=== PATIENT | female | born 1955 | race Caucasian/White ===

== ENCOUNTER 2023-10-02 07:07 | Outpatient (RCR) | payer MEDICARE, OTHER, SELFPAY | END 2023-10-02 23:59 | disposition home or self-care (01) | LOC: RPT 07:07 | PROVIDERS: ATTENDING PHYSICIAN Physician Assistant Medical; FAMILY PHYSICIAN Family Medicine | DX: M17.11 Unilateral primary osteoarthritis, right knee (principal); Z96.652 Presence of left artificial knee joint; Z73.6 Limitation of activities due to disability; M25.562 Pain in left knee; M25.561 Pain in right knee | CPT/HCPCS: 97110; 97162; 97530 ==

== ENCOUNTER 2023-10-11 06:49 | Outpatient (RCR) | payer MEDICARE, OTHER, SELFPAY | END 2023-10-18 08:35 | disposition home or self-care (01) | LOC: RPT 06:49 | PROVIDERS: ATTENDING PHYSICIAN Physician Assistant Medical; FAMILY PHYSICIAN Family Medicine | DX: M17.11 Unilateral primary osteoarthritis, right knee (principal); M17.12 Unilateral primary osteoarthritis, left knee; Z73.6 Limitation of activities due to disability | CPT/HCPCS: 97110; 97112 ==

== ENCOUNTER → 2024-04-28 07:43 | Outpatient (REF) | payer MEDICARE, OTHER, SELFPAY | LOC: WDC 07:43 | PROVIDERS: ATTENDING PHYSICIAN Internal Medicine Hematology & Oncology | DX: Z12.31 Encounter for screening mammogram for malignant neoplasm of breast (principal); Z85.3 Personal history of malignant neoplasm of breast; C50.312 Malignant neoplasm of lower-inner quadrant of left female breast; R92.2 Inconclusive mammogram | CPT/HCPCS: 77063; 77067 ==

== ENCOUNTER → 2024-06-10 08:08 | Outpatient (REF) | payer MEDICARE, OTHER, SELFPAY ==
[2024-06-10 09:05] LABS: % Basophils 1.2 % (0-2); % Eosinophils 1.4 % (0-6); % Immature Granulocytes 0.2 % (0-0.5); % Lymphocytes 37.4 % (20.5-51.1); % Monocytes 10.1 % (1.7-9.3); % Neutrophils 49.7 % (42.2-75.2); Absolute Basophils 0.1 10^3/uL (0-0.2); Absolute Eosinophils 0.1 10^3/uL (0-0.7); Absolute Lymphocytes 1.6 10^3/uL (1.2-3.4); Absolute Monocytes 0.4 10^3/uL (0.1-0.6); Absolute Neutrophils 2.1 10^3/uL (1.4-6.5); Hematocrit 39.2 % (37.0-47.0); Mean Corp Hgb Conc. 33.2 g/dL (33.0-37.0); Mean Corpuscular Hgb 30.7 pg (27.0-31.0); Mean Corpuscular Volume 92.7 fL (81.0-99.0); Mean Platelet Volume 9.9 fL (7.4-10.4); Nucleated Red Blood Cells % 0 %; Platelet Count 247 10^3/uL (130-400); Red Blood Cell Count 4.23 10^6/uL (4.20-5.40); Red Cell Dist. Width 12.8 % (11.5-14.5); White Blood Cell Count 4.2 10^3/uL (4.8-10.8)
[2024-06-10 09:45] LABS: Glycohemoglobin (HgbA1c) 5.4 % (4.0-5.6)
[2024-06-10 10:13] LABS: ALT (SGPT) 17 U/L (0-35); AST (SGOT) 25 U/L (14-36); Albumin 4.3 g/dl (3.5-5.0); Alkaline Phosphatase 92 U/L (38-126); Blood Urea Nitrogen 16 mg/dl (7-17); Calcium 9.6 mg/dl (8.4-10.2); Carbon Dioxide 32 mmol/L (22-30); Chloride 103 mmol/L (98-107); Glucose 92 mg/dl (70-99); HDL Cholesterol 65 mg/dl; LDL Cholesterol, Calculated 139 mg/dl; Potassium 4.8 mmol/L (3.5-5.1); Sodium 142 mmol/L (135-145); Total Bilirubin 0.7 mg/dl (0.2-1.3); Total Cholesterol 215 mg/dl (50-199); Total Protein 6.8 g/dl (6.3-8.2); Triglyceride 58 mg/dl (10-149); Very Low Density Lipoprotein 11 mg/dl (0-30); eGFR > 60.00
[2024-06-10 10:20] LABS: Vitamin D, 25-OH*** 32.2 ng/mL (30-80)
== END ==
LOC: REG 08:08
PROVIDERS: ATTENDING PHYSICIAN Family Medicine
DX: E78.2 Mixed hyperlipidemia (principal); I10 Essential (primary) hypertension; R73.09 Other abnormal glucose; Z79.899 Other long term (current) drug therapy
CPT/HCPCS: 36415; 80053; 80061; 82306; 83036; 84443; 85025

== ENCOUNTER 2024-06-14 16:15 | Inpatient (IN) | payer MEDICARE, OTHER, SELFPAY ==
[2024-06-14 09:13] VITALS: BP 136/84
[2024-06-14 09:31] LABS: % Basophils 0.5 % (0-2); % Eosinophils 0.2 % (0-6); % Immature Granulocytes 0.6 % (0-0.5); % Lymphocytes 12.6 % (20.5-51.1); % Monocytes 6.7 % (1.7-9.3); % Neutrophils 79.4 % (42.2-75.2); Absolute Immature Granulocytes 0.1 10^3/uL (0-0.05); Absolute Lymphocytes 1.1 10^3/uL (1.2-3.4); Absolute Monocytes 0.6 10^3/uL (0.1-0.6); Hematocrit 40.5 % (37.0-47.0); Hemoglobin 13.9 g/dL (12.0-16.0); Mean Corp Hgb Conc. 34.3 g/dL (33.0-37.0); Mean Corpuscular Volume 90.4 fL (81.0-99.0); Mean Platelet Volume 9.5 fL (7.4-10.4); Nucleated Red Blood Cells % 0 %; Platelet Count 251 10^3/uL (130-400); Red Blood Cell Count 4.48 10^6/uL (4.20-5.40); Red Cell Dist. Width 12.6 % (11.5-14.5); White Blood Cell Count 8.8 10^3/uL (4.8-10.8)
[2024-06-14 09:44] LABS: APTT 29.7 Sec (23.4-35.0); INR 1.01; PT 13.1 Sec (11.4-14.6)
[2024-06-14 09:48] LABS: ALT (SGPT) 17 U/L (0-35); AST (SGOT) 25 U/L (14-36); Albumin 4.6 g/dl (3.5-5.0); Alkaline Phosphatase 114 U/L (38-126); Blood Urea Nitrogen 23 mg/dl (7-17); Carbon Dioxide 29 mmol/L (22-30); Chloride 103 mmol/L (98-107); Glucose 122 mg/dl (70-99); Lipase 40 U/L (23-300); Potassium 4.1 mmol/L (3.5-5.1); Sodium 141 mmol/L (135-145); Total Bilirubin 0.8 mg/dl (0.2-1.3); Total Protein 7.2 g/dl (6.3-8.2); eGFR > 60.00
--- NOTE | 2024-06-14 10:35 | ED.GENMED ---
History of Present Illness
General
Chief Complaint: Abdominal Pain
Source: patient
Exam Limitations: none
Time Seen by Provider: 06/14/24 10:27
Nursing documentation reviewed up to this point in time: agreed with
History of Present Illness
History of Present Illness:
Patient is a 68-year-old female who presents to the ER for evaluation of abdominal pain/blood in her stool. Patient reports she started with crampy gas-like abdominal pain yesterday and had several episodes of stool but then late last night had an
episode of what she describes as a clot of burgundy type blood and then this morning had a second episode. She also noticed that she had bright red blood when she wiped with toilet paper. She does have a history of diverticulosis but has never had
diverticulitis. This was found on colonoscopy. She denies any fever chills.
She is not on blood thinners.
Past History
Past History
ED Past Medical History: HTN
Review of Systems
Review of Systems
Allergies reviewed?: Yes
All Other Systems: ROS reviewed and negative except as documented in HPI and ROS
Constitutional: Reports no symptoms; Denies fever, fatigue or chills
Respiratory: Reports no symptoms
Cardiac: Reports no symptoms
ABD/GI: Reports abdominal pain and other (blood per rectum ); Denies nausea or vomiting
: Reports no symptoms
Musculoskeletal: Reports no symptoms
Skin: Reports no symptoms
Neurological: Reports no symptoms
Psychiatric: Reports no symptoms
Phy Exam
General Physical Exam
General Presentation: no apparent distress
General age: appears stated age
General Skin: warm and dry
General Habitus: normal
General Mental: alert
General Hydration: dry mucous membranes
Cardiovascular Exam
Cardiovascular Exam: regular rate/rhythm
Pulmonary Exam
Pulmonary Exam: lungs clear and no respiratory distress
Gastrointestinal Exam
Gastrointestinal Exam: non tender, soft and other (Rectal exam :bright red blood no active bleeding no stool )
Neurological Exam
Neurological Exam: alert
Musculoskeletal Exam
Musculoskeletal Exam: full ROM
Skin Exam
Skin Exam: normal color and warm/dry
Psychiatric Exam
Psychiatric Exam: normal mood/affect
Course
Orders/Labs/Results
Orders:
Orders
06/14/24 Breakfast
Clear Liquid
At Your Request: Full Participation
Clear Liquids: No red liquids
06/14/24 09:25
Type+Screen Urgent
Complete Blood Count/With Diff Urgent
Comprehensive Metabolic Panel Urgent
Lipase Urgent
PTT Urgent
Prothrombin Time Urgent
06/14/24 11:49
0.9% Sodium Chloride 1000 ml [Nss] 1,000 ml IV BOLUS
06/14/24 11:50
CT Abd/pel W Iv And Oral Contr Urgent
Comment:
Reason For Exam: abd pain/blood per rectum
Iohexol [Omnipaque] See Protocol PO NOW STA
06/14/24 15:31
MetroNIDAZOLE 500 MG/100 ML [Flagyl 500 mg] 100 ml IV NOW
06/14/24 16:00
Admit/Transfer Patient As Directed
Co-Sign Provider:
Level of Care: Inpatient admission
Assign to:: Medical/Surgical
Physician / Group: [facility]
Diagnosis: Colitis
Reason for Hospitalization: IVFs, IV abx
Expected length of stay greater than two midnights?: Yes
ELOS- Estimated Length of Stay in days: 3
I certify the patient meets the requirements for IP care: Yes
PRN Pain Medication Management As Directed
May give lesser potent ordered pain med per pt: Yes
preference::
Protocol:: Medication orders for pain may be administered in a
manner that supports deferring to patient preference
when the pt is:
- Requesting an ordered lesser potent pain medication.
Least to most potent pain medications are defined
as: acetaminophen < NSAID < tramadol < opioids
(morphine, oxycodone, hydromorphone).
- Requesting a lesser dose of the same medication IF
ORDERED.
- Requesting a less intrusive route of administration
if both routes are prescribed by the provider (PO <
IV).
06/14/24 16:02
Code Status As Directed
Resuscitation Status: Full Code
06/14/24 16:31
STOOL [C difficile Antigen & Toxins] Urgent
SHI Source: Feces/Stool
Specimen Description:
Date Specimen was Collected: 06/14/24
Time Specimen was Collected: 16:30
Stool Culture Urgent
SHI Source: Feces/Stool
Specimen Description:
Date Specimen was Collected: 06/14/24
Time Specimen was Collected: 16:30
06/14/24 19:46
0.9% Sodium Chloride 1000 ml [Nss] 1,000 ml IV 60 mls/hr
Acetaminophen [Tylenol] 650 mg PO Q4HPRN PRN
Ondansetron Injectable [Zofran] 4 mg IV Q6HPRN PRN
06/14/24 19:46
GASTROINTESTINAL CONSULT Routine
Consulting Provider: Urban Boyer
Was physician already notified: Yes
Activity As Directed
Activity Level: Out of Bed-Early Mobility
I&O [Intake/ Output] As Directed
Frequency: q12h
Pneumatic Compression Sleeves As Directed
Type: Knee high
Vital Signs As Directed
Frequency: Per unit guidelines
Weight As Directed
Frequency: Daily
DX Deep Vein Thrombosis Video Routine
06/14/24 22:00
Lisinopril [Zestril] 20 mg PO QPM
06/15/24 00:00
MetroNIDAZOLE 500 MG/100 ML [Flagyl 500 mg] 100 ml IV Q8
06/15/24 04:49
Basic Metabolic Panel IN AM
Complete Blood Count/No Diff IN AM
06/15/24 06:00
LevoFLOXacin 500 MG/100 ML [Levaquin] 500 mg in 100 ml IV Q24H
Abnormal Lab Results
06/14/24
09:25
Abs Immat Gran (auto) 0.1 H 10^3/uL
(0-0.05)
Absolute Neuts (auto) 7.0 H 10^3/uL
(1.4-6.5)
Absolute Lymphs (auto) 1.1 L 10^3/uL
(1.2-3.4)
Immature Gran % 0.6 H %
(0-0.5)
Neutrophils % 79.4 H %
(42.2-75.2)
Lymphocytes % 12.6 L %
(20.5-51.1)
BUN 23 H mg/dl
(7-17)
Glucose 122 H mg/dl
(70-99)
06/14/24 09:25
06/14/24 09:25
Vital Signs
Initial and Last Documented VS:
Initial Vital Signs
Temp Pulse Resp BP Pulse Ox
97.5 F 115 16 136/84 99
06/14/24 09:13 06/14/24 09:13 06/14/24 09:13 06/14/24 09:13 06/14/24 09:13
Last Documented Vital Signs
Temp Pulse Resp BP Pulse Ox
97.7 F 78 16 131/67 97
06/15/24 06:59 06/15/24 06:59 06/15/24 06:59 06/15/24 06:59 06/15/24 06:59
MDM/Problems Addressed
Differential Diagnosis Includes:
not limited to: colitis, diverticulitis less likely mesenteric ischemia
MDM/Problems Addressed:
Patient is a 60-year-old female who presented to the ER complaining of abdominal cramping that started last night along with blood per rectum. Stool was initially brown however she felt the urge to move her bowels and was producing blood. Patient
has had several episodes here but not continuous bleeding. Her hemoglobin is stable she denies any fevers and is afebrile however CAT scan does show involvement contiguously from the distal transverse colon through the descending colon and superior
sigmoid. Results reviewed with ED physician with significant involvement of colon will admit for IV antibiotics. Patient did give a specimen.
*Radiology
Radiology exam reviewed: radiology read reviewed
*Pulse Oximetry
Patient hypoxic: no
*Critical Care Note
Total Time (30-74mins, 75-104mins- exclusive of procedures): Not Applicable
ED Attending Note
-
Portions of this chart may have been created with voice recognition software.� Occasional wrong word or��sound alike� substitutions may have occurred due to the inherent limitations of voice recognition software.
Discharge Plan
Departure
Patient Disposition: Admit
Date of Disposition: 06/14/24
Time of Disposition: 15:34
Admit to: Med/Surg
Admit to doctor: hospitalist
Presentation/result/management discussed w/ accepting MD/DO: Hospitalist
Patient with high blood pressure during this ER visit?: Yes
Condition: Fair
Covid-19: Not Applicable
Discharge Problem:
Colitis
Interventions
Interventions:
*Risk Screen - Suicide Last Done: 06/14/24 09:13
*General Assessment Last Done: 06/14/24 09:13
*Neglect/Abuse Screening Last Done: 06/14/24 13:17
ED- Fall Risk Assessment Last Done: 06/14/24 13:17
*ED COVID-19 Vaccine History Last Done: 06/14/24 09:13
IZ-Lqqlps-Lyginwnhfq Assessment Last Done: 06/14/24 13:17
[2024-06-14 11:48] VITALS: BMI 22.2
[2024-06-14] MEDS: NSS 1000 IV ×2 (11:57→21:05)
[2024-06-14] MEDS: OMNIPAQUE 50 ML PO (11:57)
--- NOTE | 2024-06-14 16:05 | HPS.HSE ---
Addendum entered and electronically signed by Popeye Adan MD 06/14/24 16:19:
I saw and examined the patient.
The MONOGRAM MAKER or PA's note was reviewed and I agree with the note.
Comment:
68F pw colicky lower abdominal pain followed by passage of formed stool then followed by blood clot. This AM , loose BM mixed with flacks of blood. No typical for hematochezia.
CT suggested infectiosus colitis. Afebrile. Nl WCC. Hgb is 13.8 and stable.
No HX IBD. No recent travel. No recent ABx. HD stable.
PDX: infectious colitis
Stool Cx. Stool for C Diff.
Clear diet with IVF
Trend Hgb.
Avoid PPI due to C diff risk
Empiric IV LVQ and Flagyl.
IP MS.
GI Consult.
Original Note:
Family Physician
-
Family Physician: Lindsey Rowley
Chief Complaint
-
Abdominal Pain and Diarrhea
History of Present Illness
Patient is a 68 y/o female past medical history of hypertension and breast cancer who presents with abdominal pain and diarrhea. Patient reports yesterday evening she developed cramping abdominal pain. She reports she moved her bowel several which
all seemed formed, and initially felt much better. Prior to going to bed last night she notes she passed what sounds like a blood clot. This morning she had several episodes of controlled diarrhea where she noted flecks of blood. While in the
emergency department she has had several more episodes of diarrhea after drinking contrast for a CT scan. She denies fevers, sweats or chills. She denies recent travel, antibiotics, or questionable food intake.
Medical History
Past Medical History
Past Medical History: Reports Other
Additional Past Medical History:
Essential Hypertension
Breast Cancer s/p Left Lumpectomy and Radiation
Past Surgical History: Reports Other
Additional Past Surgical History:
Left Breast Lumpectomy
Left Knee Replacement
Social History
Tobacco: Non-smoker
Alcohol: Occasional (Patient reports very rare)
Family History
Family History: Not pertinent
Allergies / Home Medications
Allergies reflects when Allergies were last updated in [facility].
Home Medications with original date entered in [facility]
Allergy/Medication List:
Allergies
Allergy/AdvReac Type Severity Reaction Status Date / Time
No Known Allergies Allergy Verified 06/14/24 09:16
Home Medications
calcium carbonate 500 mg PO DAILY 01/08/12
lisinopril 10 mg tablet 20 mg PO QPM 10/07/18
cholecalciferol (vitamin D3) 25 mcg (1,000 unit) capsule (Vitamin D3) 1 cap PO DAILY 04/16/19
acetaminophen 325 mg tablet (Tylenol) 650 mg PO Q4HPRN PRN mild pain 06/14/24
Review of Systems
-
A 12 point ROS was completed and negative except as noted: Yes
Constitutional: Denies Fever or Chills
Respiratory: Denies Cough or Trouble Breathing
Cardiac: Denies Chest Pain or Palpitations
Abdomen/GI: Reports See HPI
Physical Exam
Vital Signs
Vital Signs
Temp Pulse Resp BP Pulse Ox
97.5 F 90 18 136/84 96
06/14/24 09:13 06/14/24 11:49 06/14/24 11:49 06/14/24 09:13 06/14/24 11:49
Physical Exam
General: Comfortable and Conversant
HEENT: Anicteric and Moist mucous membranes
Respiratory: Clear and Non Labored Respirations
Cardiac: S1/S2 and Regular Rhythm; No Tachycardia
GI: Soft and Non Tender
Rectal: Deferred by Provider
Musculoskeletal: No Clubbing, No Cyanosis and No Edema
Skin: Warm and Dry
Neuro: Awake, Alert, Oriented and Nonfocal/grossly intact
Psych: Calm
Laboratory Results
-
06/14/24:
06/14/24:
Laboratory Results
PT 13.1 Sec (11.4-14.6) 06/14/24:
INR 1.01 06/14/24
APTT 29.7 Sec (23.4-35.0) 06/14/24
Total Bilirubin 0.8 mg/dl (0.2-1.3) 06/14/24
AST 25 U/L (14-36) 06/14/24
ALT 17 U/L (0-35) 06/14/24
Alkaline Phosphatase 114 U/L (38-126) 06/14/24
Lipase 40 U/L (23-300) 06/14/24:
Abd/Pelvis CT Scan:
CT findings compatible with colitis, with involvement contiguously from the distal transverse colon through the descending colon and the superior sigmoid colon. This is most likely infectious colitis.
Data Reviewed
-
CT Scan: Report Reviewed by me
Lab Data: Labs Reviewed by me
Impression/Plan
-
Acute Colitis, likely infectious in nature
-Consult GI
-Continue Levaquin and Flagyl
-Allow clear liquids
-Check stool studies
Essential Hypertension
-Continue lisinopril with hold parameters
DVT proph: SCDs
Code Status: Full Code
[2024-06-14] MEDS: FLAGYL 500 MG 100 IV ×2 (16:21→23:42)
[2024-06-14] MEDS: CIPRO 400 MG 200 IV (17:47)
[2024-06-14] MEDS: ZESTRIL 20 MG PO (23:42)
[2024-06-15] MEDS: LEVAQUIN 100 IV (05:00)
[2024-06-15 05:11] LABS: Hematocrit 32.6 % (37.0-47.0); Hemoglobin 11.3 g/dL (12.0-16.0); Mean Corp Hgb Conc. 34.7 g/dL (33.0-37.0); Mean Corpuscular Hgb 31.6 pg (27.0-31.0); Mean Corpuscular Volume 91.1 fL (81.0-99.0); Mean Platelet Volume 9.6 fL (7.4-10.4); Platelet Count 194 10^3/uL (130-400); Red Blood Cell Count 3.58 10^6/uL (4.20-5.40); Red Cell Dist. Width 12.9 % (11.5-14.5); White Blood Cell Count 8.1 10^3/uL (4.8-10.8)
[2024-06-15 05:26] LABS: Blood Urea Nitrogen 12 mg/dl (7-17); Calcium 8.7 mg/dl (8.4-10.2); Carbon Dioxide 24 mmol/L (22-30); Chloride 108 mmol/L (98-107); Estimated Creatinine Clearance 71 ml/min; Glucose 90 mg/dl (70-99); Potassium 4.2 mmol/L (3.5-5.1); Sodium 142 mmol/L (135-145); eGFR > 60.00
[2024-06-15 06:00] VITALS: BMI 22.3
[2024-06-15 06:59] VITALS: BP 131/67
[2024-06-15] MEDS: FLAGYL 500 MG 100 IV ×3 (07:56→23:15)
--- NOTE | 2024-06-15 08:24 | W.PN.HOSP.TC ---
Today's Communication/Plan
-
See plan
Assessment / Plan
Assessment / Plan
Impression:
Transverse�descending colitis.
Hematochezia.
Other conditions:
Benign hypertension.
Plan:
Presentation with colicky abdominal pain and self-limited episode of hematochezia along with loose stools.
Left-sided most likely infectious colitis
CT scan confirms colitis involving continuously from distal transverse colon through the descending colon and the superior sigmoid colon.
Afebrile nontoxic-appearing.
Abdomen with very mild left lower quadrant tenderness
Normal white count
Reports colonoscopy about 2 years ago.
Empiric antibiotics Levaquin/Flagyl pending stool cultures.
Clear liquid diet
Okay to stop IV fluids.
GI consultation.
Anticipated Discharge: 24 - 48 hours
Subjective/Interval History
-
Date of Service: June 15, 2024
Objective Data
-
Labs:
Laboratory Results
06/15/24
04:49
WBC 8.1
Hgb 11.3 L
Hct 32.6 L
Plt Count 194 D
Sodium 142
Potassium 4.2
Chloride 108 H
Carbon Dioxide 24
BUN 12
Creatinine 0.5 L
Glucose 90
Calcium 8.7
Vital Signs:
Vital Signs
Temp Pulse Resp BP Pulse Ox
97.7 F 78 16 131/67 97
06/15/24 06:59 06/15/24 06:59 06/15/24 06:59 06/15/24 06:59 06/15/24 06:59
I&O
06/14/24 06/15/24 06/16/24
06:59 06:59 06:59
Intake Total 940 / 940
Balance 940 / 940
Physical Exam
-
General: Well Developed and No Apparent Distress
HEENT: Normocephalic, Atraumatic and Moist Mucous Membranes
Respiratory: Clear to Auscultation
Cardiac: Regular Rhythm and S1/S2; Negative Murmur, Rub or Gallop
GI: Soft, Nontender, Nondistended and Normal Bowel Sounds; Negative Organomegaly
Rectal: Deferred by Provider
Musculoskeletal: No Clubbing, No Cyanosis and No Edema
Skin: Negative Rash
Neuro: Nonfocal/Grossly Intact
--- NOTE | 2024-06-15 08:34 | CON.GI ---
Addendum entered and electronically signed by Urban Boyer MD 06/15/24 13:39:
I saw and examined the patient.
The PA's note was reviewed and I agree with the note.
Comment:
68 year old female with h/o HTN, arthritis, breast CA s/p lumpectomy and XRT in 2017 who p/w abdominal pain/cramping followed by rectal bleeding.
Impression / Rec:
1. Abdo pain/cramping and rectal bleeding - likely ischemic colitis. Pt had lower abdominal cramping and sharp pain 2 days ago, which was followed by red/maroon stool the following day. Denies diarrhea, fever, or sick contacts. Denies h/o
migraine or recent triptan use. CT here showed colitis from the distal transverse colon through the descending colon and superior sigmoid colon which is the classic watershed area. Last colonoscopy was done in March 2021, unremarkable. C.
difficile is negative. Other stool culture is pending. Will plan for flx sig today. Agree with empirical abx for now.
Original Note:
Consultation
-
Date/Time Consultation Requested: 06/14/24 @ 19:46
Date/Time Consultation Performed: 06/15/24 @ 08:45
Requesting Provider: Renata Bo PA-C
Performing Provider: [facility];Dr. Urban Boyer
Reason for Consultation: colitis
Medical History
Chief Complaint / HPI
Chief Complaint: abdominal pain, rectal bleeding
History of Present Illness:
The pt is a 68 yo female with a PMH significant for HTN, arthritis, breast cancer status postlumpectomy and radiation in 2016, who presented to the hospital with complaints of abdominal pain and rectal bleeding. We are being asked to evaluate for
colitis. The patient reports that on Saturday she was at a picnic for her grandsons birthday. She notes that she was eating various foods including potato salad and cake, although reports it had not been sitting out long prior to eating. She
notes that within a few hours she started to get the urge to have a bowel movement, and had to sit in the bathroom for half hour. She was having lower abdominal cramping with sharp pains. She within 10 minutes was finally able to have a bowel
movement although she reports that it was formed and brown-colored. She notes that she did get quite sweaty and felt weak with passing stool. She denies any syncope. She did have some lightheadedness although no significant dizziness or shortness
of breath. She notes that she had to go back to the bathroom again shortly after that and again thought she was going to have diarrhea but had another formed stool and finally started to feel better. She notes that night she went home and took a
shower and after getting out of the shower she had the urge to move her bowels again, and at this time noticed a very dark red/burgundy color in the toilet bowl. She reports upon wiping the color was red. She decided to go to bed and upon
awakening the next day on Saturday she had several similar episodes of very dark-colored stool/blood in the toilet bowl x 2 episodes. She called her primary care physician on-call, who advised her to go to the emergency room. She notes that she did
have a very foul odor to her stool. She notes she was transiently nauseated but denies any vomiting. She denies any fevers or chills. She notes that she had been losing some weight recently, but no significant weight loss unintentionally. She
reports having similar episodes to this in the past over the last 4 years but no blood. She reports chronic constipation and does take Benefiber 1 to 2 teaspoons most days which keeps her fairly regular. She notes that she does not drink enough
water and sometimes will get more constipated due to this. She otherwise denies any other upper GI complaints. She denies any prior history of colitis. She denies any use of blood thinners. She will take meloxicam a few times a month as needed
for arthritis pains. She denies any family history of colon cancer or other GI cancers or disorders. Her last colonoscopy was in 2020 with no polyps (other findings as noted below), but with fair prep she was advised to repeat in 5 years. Upon
evaluation in the ER, CT scan showing findings consistent with colitis, likely infectious with contiguous wall thickening from the distal transverse colon through the distal descending colon extending into the sigmoid colon, greatest involving the
splenic flexure. Other findings as noted below. Routine labs showed WBC 8.8, hgb 13.9 (down to 11.3), Na 141, K 4.1, BUN 23, Cr 0.6=, AST 25, ALT 17, alk phos 114, TB 0.8, lipase 40. She was started on antibiotics with Levaquin and Flagyl and
admitted for further evaluation by GI with stool studies pending.
Past Medical History
Past Medical History: Cancer (left breast CA s/p lumpectomy and XRT 2016), HTN and Other (arthritis)
Past Surgical History: Gynecological (total hysterectomy), Orthopedic (knee replacement) and Other (left breast lumpectomy)
Social History
Tobacco: Non-Smoker
Alcohol: Occasional
Drug: None
Personal:
Living: With Family
Family History
Family History: Reviewed & Not Pertinent
Allergies / Home Medications
Allergy/AdvReac Type Severity Reaction Status Date / Time
No Known Allergies Allergy Verified 06/14/24 09:16
�Medication �Instructions �Recorded
calcium carbonate 500 mg PO DAILY 01/08/12
lisinopril 10 mg tablet 20 mg PO QPM 10/07/18
cholecalciferol (vitamin D3) 25 1 cap PO DAILY 04/16/19
mcg (1,000 unit) capsule (Vitamin
D3)
acetaminophen 325 mg tablet 650 mg PO Q4HPRN PRN mild pain 06/14/24
(Tylenol)
Review of Systems
-
History Source: Patient
Constitutional: Reports No Symptoms
EENT: Reports No Symptoms
Respiratory: Reports No Symptoms
Cardiac: Reports No Symptoms
Abdomen/GI: Reports Abdominal Pain, Nausea, Diarrhea, Constipated and Bloody Stools
: Reports No Symptoms
Musculoskeletal: Reports No Symptoms
Skin: Reports No Symptoms
Neurological: Reports Other (lightheadedness)
Endocrine: Reports No Symptoms
Hematologic/Lymphatic: Reports No Symptoms
Vital Signs
Temp Pulse Resp BP Pulse Ox
97.7 F 78 16 131/67 97
06/15/24 06:59 06/15/24 06:59 06/15/24 06:59 06/15/24 06:59 06/15/24 06:59
Physical Exam
Exam
General: Well Developed, Well Nourished, No Apparent Distress and Comfortable
HEENT: Normocephalic, Anicteric and Atraumatic
Respiratory: Clear
Cardiac: S1/S2 and Regular Rhythm
Breast: Deferred by me
GI: Soft, Non Distended, Normal Bowel Sounds and Tender (+TTP LLQ)
Rectal: Deferred by Provider
Musculoskeletal: No Edema
Skin: Warm and Dry
Neuro: Awake, Alert and Oriented
Psych: Calm
Results
WBC 8.1 10^3/uL (4.8-10.8) 06/15/24 04:49
Hgb 11.3 g/dL (12.0-16.0) L 06/15/24 04:49
Hct 32.6 % (37.0-47.0) L 06/15/24 04:49
MCV 91.1 fL (81.0-99.0) 06/15/24 04:49
Plt Count 194 10^3/uL (130-400) D 06/15/24 04:49
Absolute Neuts (auto) 7.0 10^3/uL (1.4-6.5) H 06/14/24 09:25
PT 13.1 Sec (11.4-14.6) 06/14/24 09:25
INR 1.01 06/14/24 09:25
APTT 29.7 Sec (23.4-35.0) 06/14/24 09:25
Sodium 142 mmol/L (135-145) 06/15/24 04:49
Potassium 4.2 mmol/L (3.5-5.1) 06/15/24 04:49
Chloride 108 mmol/L (98-107) H 06/15/24 04:49
Carbon Dioxide 24 mmol/L (22-30) 06/15/24 04:49
BUN 12 mg/dl (7-17) 06/15/24 04:49
Creatinine 0.5 mg/dL (0.6-1.0) L 06/15/24 04:49
Calcium 8.7 mg/dl (8.4-10.2) 06/15/24 04:49
Total Bilirubin 0.8 mg/dl (0.2-1.3) 06/14/24 09:25
AST 25 U/L (14-36) 06/14/24 09:25
ALT 17 U/L (0-35) 06/14/24 09:25
Alkaline Phosphatase 114 U/L (38-126) 06/14/24 09:25
Lipase 40 U/L (23-300) 06/14/24 09:25
Diagnostic Image Results:
06/14/24 CT A/P w/IV and oral: IMPRESSION: CT findings compatible with colitis, with involvement contiguously from the distal transverse colon through the descending colon and the superior sigmoid colon. This is most likely infectious colitis. No
evidence for free intraperitoneal air. No evidence for abscess. No evidence for bowel obstruction. Hepatic cysts as described. Mild bilateral adrenal gland hyperplasia. Left posterior spurring at T11-12 disc space, extending into the left anterior
aspect of the spinal canal, difficult to determine if there could be a degree of left anterior spinal cord compression at this level.
Prior GI Procedures:
EGD: 03/15/2021 Dr. Avila: Normal esophagus. Erythematous mucosa in the antrum. Biopsied. 2 cm hiatal hernia. Normal examined duodenum. Biopsied. Path showing chronic inflammation of the stomach, neg for H pylori or IM/dysplasia. SB bx neg for celiac.
Colonoscopy: 03/15/2021 Dr. Avila: Non-bleeding internal hemorrhoids. Diverticulosis in the sigmoid colon. The examination was otherwise normal. The examined portion of the ileum was normal. Moderate colonic spasm at 15cm, was able to transverse by
changing to adult endoscope. No specimens collected.
Assessment / Plan
-
The pt is a 68 yo female with a PMH significant for HTN, arthritis, breast CA s/p lumpectomy and XRT in 2016, who presented to the hospital with complaints of abdominal pain and rectal bleeding, found to have findings on CT consistent with colitis.
She notes acute onset of symptoms Saturday afternoon after attending a picnic for her grandsons birthday. She notes she had been eating food at the green party although she does not feel they were sitting out long. She initially started with lower
abdominal cramping and sharp pain with subsequent and normal bowel movements, but then continued with intermittent urgency and cramping with subsequent passage of dark red/burgundy from the rectum. She denies any fevers or chills, and no evident
leukocytosis. She did have a mild drop of her hemoglobin From 13.9 to 11.3, although with no further bleeding at this point. CT showing findings consistent with colitis from the distal transverse colon through the descending colon and superior
sigmoid colon. She has no prior episodes of colitis. Last colonoscopy was done in March 2021 which showed nonbleeding internal hemorrhoids, diverticulosis in the sigmoid colon, otherwise normal examination. She does have chronic constipation which
is maintained with Benefiber daily. She was started on Levaquin and Flagyl, on clear liquid diet currently feeling improved. C. difficile is negative. Stool culture is pending.
Problem list:
-abdominal pain, CT showing colitis
-hematochezia
-fatty liver on CT, normal LFT's
-mild normocytic anemia, likely due to acute blood loss from colitis
-HTN
-intermittent NSAID use for arthritis
Recommendations:
-Etiology of colitis likely infectious versus less likely inflammatory versus ischemic versus other.
---She is feeling improved with IV antibiotics and bowel rest.
-Continue with antibiotics
-Follow stool culture. C. difficile negative.
-Trend H&H
-Monitor for recurrent bleeding
-Advance diet as tolerated to low residue
-Will add CRP and lactic acid to rule out ischemic etiology although I feel this is less likely
-Avoid NSAID's
-She will need outpatient follow-up to arrange for eventual colonoscopy in 6 to 8 weeks (last colon in 2020). Will also address coincidental findings of fatty liver on CT at that time. her LFTs are normal.
-If she continues to improve and is tolerating her diet, likely can d/c in AM with OP follow-up as above
-Further management pending above
-
-
Thank you for consultation and allowing me to participate in the patient's care. Please call the personnel analyst GI physician during the after hours with any questions or concerns.
[2024-06-15 11:26] VITALS: BP 119/59
[2024-06-15 14:56] VITALS: BP 119/59; BP 124/62
--- NOTE | 2024-06-15 15:50 | PTCARENOTE ---
Patient transferred to from GI lab. Report received from ANA Alfaro. Patient oriented to floor. Call castro within reach.
[2024-06-15 15:53] VITALS: BP 156/84
[2024-06-15] MEDS: ZESTRIL 20 MG PO (17:11)
[2024-06-15 20:33] LABS: Lactic Acid 1.5 mmol/L (0.7-2.0)
[2024-06-15 23:34] VITALS: BP 123/73
[2024-06-16] MEDS: LEVAQUIN 100 IV (05:29)
[2024-06-16 05:35] VITALS: BMI 24.5
[2024-06-16 07:15] VITALS: BP 136/75
[2024-06-16 07:38] LABS: Blood Urea Nitrogen 9 mg/dl (7-17); Calcium 9.2 mg/dl (8.4-10.2); Carbon Dioxide 26 mmol/L (22-30); Chloride 106 mmol/L (98-107); Estimated Creatinine Clearance 70 ml/min; Glucose 94 mg/dl (70-99); Potassium 3.8 mmol/L (3.5-5.1); Sodium 144 mmol/L (135-145); eGFR > 60.00
[2024-06-16 07:48] LABS: % Basophils 0.6 % (0-2); % Immature Granulocytes 0.3 % (0-0.5); % Lymphocytes 23.2 % (20.5-51.1); % Monocytes 7.3 % (1.7-9.3); % Neutrophils 67.6 % (42.2-75.2); Absolute Eosinophils 0.1 10^3/uL (0-0.7); Absolute Lymphocytes 1.6 10^3/uL (1.2-3.4); Absolute Monocytes 0.5 10^3/uL (0.1-0.6); Absolute Neutrophils 4.7 10^3/uL (1.4-6.5); Hematocrit 36.7 % (37.0-47.0); Hemoglobin 12.4 g/dL (12.0-16.0); Mean Corp Hgb Conc. 33.8 g/dL (33.0-37.0); Mean Corpuscular Hgb 30.9 pg (27.0-31.0); Mean Corpuscular Volume 91.5 fL (81.0-99.0); Nucleated Red Blood Cells % 0 %; Platelet Count 217 10^3/uL (130-400); Red Blood Cell Count 4.01 10^6/uL (4.20-5.40); Red Cell Dist. Width 12.6 % (11.5-14.5); White Blood Cell Count 6.9 10^3/uL (4.8-10.8)
[2024-06-16] MEDS: FLAGYL 500 MG 100 IV (08:09)
--- NOTE | 2024-06-16 10:16 | W.PN.GI.CBS2 ---
Today's Communication / Plan
-
Adv to low residue diet
Nutritional consult
OP GI appt set up and CBC in 1 wk sent. Will need OP colonoscopy and fibroscan
GI will sign off please call for questions
Assessment / Plan
-
The pt is a 68 yo female with a PMH significant for HTN, arthritis, breast CA s/p lumpectomy and XRT in 2016, who presented to the hospital with complaints of abdominal pain and rectal bleeding, found to have findings on CT consistent with colitis.
She notes acute onset of symptoms Saturday afternoon after attending a picnic for her grandsons birthday. She notes she had been eating food at the constitution party although she does not feel they were sitting out long. She initially started with lower
abdominal cramping and sharp pain with subsequent and normal bowel movements, but then continued with intermittent urgency and cramping with subsequent passage of dark red/burgundy from the rectum. She denies any fevers or chills, and no evident
leukocytosis. She did have a mild drop of her hemoglobin From 13.9 to 11.3, although with no further bleeding at this point. CT showing findings consistent with colitis from the distal transverse colon through the descending colon and superior
sigmoid colon. She has no prior episodes of colitis. Last colonoscopy was done in March 2021 which showed nonbleeding internal hemorrhoids, diverticulosis in the sigmoid colon, otherwise normal examination. She does have chronic constipation which
is maintained with Benefiber daily. She was started on Levaquin and Flagyl, on clear liquid diet currently feeling improved. C. difficile is negative. Stool culture is pending.
Problem list:
-abdominal pain, CT showing colitis
-hematochezia
-fatty liver on CT, normal LFT's
-mild normocytic anemia, likely due to acute blood loss from colitis
-HTN
-intermittent NSAID use for arthritis
Recommendations:
- Suspect ischemic colitis
- Continue with antibiotics to complete 7 day course to prevent gut bacterial translocation. (augmentin is ok)
- Tolerating diet. Adv to low residue
- Nutritional consult
- Stool studies thus far negative
- Recommend checking BP daily at home and increasing hydration
- She will need outpatient follow-up to arrange for eventual colonoscopy in 6 to 8 weeks (last colon in 2020). Will also address coincidental findings of fatty liver on CT at that time. her LFTs are normal.
- OP GI FU arranged for 07/09 and placed in d/c paperwork. Labs CBC in 1 wk escribed
GI will sign off please call for questions.
Subjective
Subjective
Date of Service: June 16, 2024
Her abd pain is now 2 out of 10. Tolerating FLD without issue. No significant further bleeding seen.
Objective
Data Reviewed
Laboratory Data:
Laboratory Results
06/16/24 06:31
06/16/24 06:31
Laboratory Results
PT 13.1 Sec (11.4-14.6) 06/14/24 09:25
INR 1.01 06/14/24 09:25
APTT 29.7 Sec (23.4-35.0) 06/14/24 09:25
Total Bilirubin 0.8 mg/dl (0.2-1.3) 06/14/24 09:25
AST 25 U/L (14-36) 06/14/24 09:25
ALT 17 U/L (0-35) 06/14/24 09:25
Alkaline Phosphatase 114 U/L (38-126) 06/14/24 09:25
Lipase 40 U/L (23-300) 06/14/24 09:25
Vital Signs and I&O:
Vital Signs
Temp Pulse Resp BP Pulse Ox
97.8 F 80 14 136/75 99
06/16/24 07:15 06/16/24 07:15 06/16/24 07:15 06/16/24 07:15 06/16/24 07:15
I&O
10/14/24 10/15/24 10/16/24
06:59 06:59 06:59
Intake Total 940 / 940 320 / 320
Balance 940 / 940 320 / 320
Physical Exam
Physical Exam
GEN: No acute distress, conversant, pleasant
HEENT: anicteric, extraocular movements intact, clear oropharynx without exudates
GI: soft, non-distended, LLQ tender to palpation, normal active bowel sounds, no hepatosplenomegaly
EXT: warm, well perfused, no edema bilaterally
NEURO: AAOx3, non-focal
--- NOTE | 2024-06-16 12:58 | W.DS.TRANS ---
DC Summary - Pipe Layer Helper
-
Discharge Instructions:
Discharge Diagnosis/Procedures Acute colitis
Diet Low Residue
Instructions:
Stand-Alone Forms:
Changes to Home Medications: No
Discharge Medications:
DC Medications w/original date entered in [employer]
calcium carbonate 500 mg PO DAILY Supplement 01/08/12
lisinopril 10 mg tablet 20 mg PO QPM Blood Pressure 10/07/18
cholecalciferol (vitamin D3) 25 mcg (1,000 unit) capsule (Vitamin D3) 1 cap PO DAILY Supplement 04/16/19
acetaminophen 325 mg tablet (Tylenol) 650 mg PO Q4HPRN PRN mild pain 06/14/24
Home Medication Changes
Pending Results: No
--- NOTE | 2024-06-16 13:16 | CM ---
Addendum entered by Jacquelin Hoffmann 06/16/24 13:19:
PCP: Lindsey Rowley
Pharmacy: [facility]
Original Note:
Met with patient.
IA COMPLETED. IMM explained & signed - in chart
lives in a split level home, 2 steps to enter, 4 steps to bath
PLOF: Independent, no device
Denies food/housing/transportation/utilities insecurities.
No DME
no needs
PLAN: home, no needs
to transport
[2024-06-16 15:15] VITALS: BP 132/62
== END 2024-06-16 18:00 | disposition home or self-care (01) | DRG 394 ==
LOC: 2 NORTH 16:15
PROVIDERS: Nurse Practitioner Family; Physician Assistant Medical; ADMITTING PHYSICIAN Internal Medicine; ATTENDING PHYSICIAN Internal Medicine; CONSULT PHYSICIAN Internal Medicine Gastroenterology; EMERGENCY PHYSICIAN Emergency Medicine; FAMILY PHYSICIAN Family Medicine
PROC: 0DBM8ZX Excision of Descending Colon, Via Natural or Artificial Opening Endoscopic, Diagnostic (ICD-10-PCS; 2024-06-14)
DX: K55.9 Vascular disorder of intestine, unspecified (principal); D62 Acute posthemorrhagic anemia; K63.3 Ulcer of intestine; I10 Essential (primary) hypertension; K64.0 First degree hemorrhoids; K57.30 Diverticulosis of large intestine without perforation or abscess without bleeding; K63.89 Other specified diseases of intestine
CPT/HCPCS: 88305; 74177; 80048; 80053; 83605; 83690; 85025; 85027; 85610; 85730; 86140; 86850; 86900; 86901; 87045; 87046; 87324; 87328; 87329; 87427; 87449; 89055; 96360; 99285; Q9967

== ENCOUNTER → 2024-06-19 10:39 | Outpatient (REF) | payer MEDICARE, OTHER, SELFPAY ==
[2024-06-19 12:58] LABS: Hematocrit 36.3 % (37.0-47.0); Hemoglobin 12.5 g/dL (12.0-16.0); Mean Corp Hgb Conc. 34.4 g/dL (33.0-37.0); Mean Corpuscular Hgb 32.2 pg (27.0-31.0); Mean Corpuscular Volume 93.6 fL (81.0-99.0); Mean Platelet Volume 10.2 fL (7.4-10.4); Platelet Count 244 10^3/uL (130-400); Red Blood Cell Count 3.88 10^6/uL (4.20-5.40); Red Cell Dist. Width 12.4 % (11.5-14.5); White Blood Cell Count 4.3 10^3/uL (4.8-10.8)
== END ==
LOC: REG 10:39
PROVIDERS: ATTENDING PHYSICIAN Internal Medicine Gastroenterology; FAMILY PHYSICIAN Family Medicine
DX: K92.1 Melena (principal)
CPT/HCPCS: 36415; 85027

== ENCOUNTER → 2024-06-22 13:07 | Outpatient (REF) | payer MEDICARE, OTHER, SELFPAY | LOC: RAD 13:07 | PROVIDERS: ATTENDING PHYSICIAN Internal Medicine Hematology & Oncology; FAMILY PHYSICIAN Family Medicine | DX: C50.312 Malignant neoplasm of lower-inner quadrant of left female breast (principal); M81.0 Age-related osteoporosis without current pathological fracture; Z79.811 Long term (current) use of aromatase inhibitors; R92.2 Inconclusive mammogram | CPT/HCPCS: 77080 ==

== ENCOUNTER → 2024-07-08 09:35 | Outpatient (REF) | payer MEDICARE, OTHER, SELFPAY ==
[2024-07-08 10:53] LABS: % Basophils 0.8 % (0-2); % Eosinophils 0.6 % (0-6); % Immature Granulocytes 0.2 % (0-0.5); % Lymphocytes 27.7 % (20.5-51.1); % Monocytes 8.9 % (1.7-9.3); % Neutrophils 61.8 % (42.2-75.2); Absolute Lymphocytes 1.4 10^3/uL (1.2-3.4); Absolute Monocytes 0.4 10^3/uL (0.1-0.6); Absolute Neutrophils 3.1 10^3/uL (1.4-6.5); Hematocrit 41.1 % (37.0-47.0); Hemoglobin 13.6 g/dL (12.0-16.0); Mean Corp Hgb Conc. 33.1 g/dL (33.0-37.0); Mean Corpuscular Hgb 31.4 pg (27.0-31.0); Mean Corpuscular Volume 94.9 fL (81.0-99.0); Mean Platelet Volume 9.8 fL (7.4-10.4); Nucleated Red Blood Cells % 0 %; Platelet Count 323 10^3/uL (130-400); Red Blood Cell Count 4.33 10^6/uL (4.20-5.40); Red Cell Dist. Width 12.4 % (11.5-14.5)
[2024-07-08 12:11] LABS: ALT (SGPT) 16 U/L (0-35); AST (SGOT) 25 U/L (14-36); Albumin 4.5 g/dl (3.5-5.0); Alkaline Phosphatase 99 U/L (38-126); Blood Urea Nitrogen 15 mg/dl (7-17); Calcium 10.2 mg/dl (8.4-10.2); Carbon Dioxide 30 mmol/L (22-30); Chloride 99 mmol/L (98-107); Glucose 99 mg/dl (70-99); Potassium 4.6 mmol/L (3.5-5.1); Sodium 140 mmol/L (135-145); Total Bilirubin 0.7 mg/dl (0.2-1.3); Total Protein 7.2 g/dl (6.3-8.2); eGFR > 60.00
== END ==
LOC: REG 09:35
PROVIDERS: ATTENDING PHYSICIAN Internal Medicine Hematology & Oncology; FAMILY PHYSICIAN Family Medicine
DX: C50.312 Malignant neoplasm of lower-inner quadrant of left female breast (principal); M81.0 Age-related osteoporosis without current pathological fracture; Z79.811 Long term (current) use of aromatase inhibitors; R92.2 Inconclusive mammogram; Z12.31 Encounter for screening mammogram for malignant neoplasm of breast
CPT/HCPCS: 36415; 80053; 85025

== ENCOUNTER 2024-07-26 09:15 | Emergency (ER) | payer MEDICARE, OTHER, SELFPAY ==
[2024-07-26 09:18] VITALS: BP 148/81
--- NOTE | 2024-07-26 09:46 | ED.GENMED ---
History of Present Illness
General
Chief Complaint: Abdominal Pain
Source: patient
Time Seen by Provider: 07/26/24 09:32
History of Present Illness
History of Present Illness:
68yoF with a history of hypertension and breast cancer presenting for evaluation of abdominal pain. She started with a 'stitch' in her LLQ a few days ago. Pain has been gradually worsening. The pain is currently a 2-3/10 in severity but was an 8/10
in severity last night. The pain is non-radiating and 'very annoying.' She passed gas this morning and went to the bathroom and found that her underwear was very wet. The liquid was clear with one red dot. Her bowel movements have otherwise been
normal. She denies any fevers, chills, vomiting, dysuria. Previous abdominal surgeries include a hysterectomy.
Patient was admitted last month for colitis. She was evaluated by gastroenterology and symptoms were thought to be 2/2 ischemic colitis. Patient was told that this was likely related to dehydration/low blood pressure and that it would likely be a
one time occurrence. She underwent sigmoidoscopy on 06/15/24 which revealed ' An area of moderately congested mucosa was found in the descending colon, at the splenic flexure and in the distal transverse colon. A continuous area of ulcerated mucosa
and mild subepithelial hemorrhage was present in the descending colon, at the splenic flexure and in the distal transverse colon.
Past History
Past History
ED Past Medical History: HTN
Phy Exam
General Physical Exam
General Presentation: well appearing and no apparent distress
General age: appears stated age
General Skin: warm and dry
General Habitus: normal
General Mental: alert
General Hydration: appears well hydrated
ENT Exam
ENT Exam: normocephalic
Pulmonary Exam
Pulmonary Exam: no respiratory distress
Gastrointestinal Exam
Gastrointestinal Exam: soft, non distended and other (+Mild tenderness in LLQ. Abdomen soft, non-distended. No rebound or guarding.)
Neurological Exam
Neurological Exam: alert
Sylvia Coma Scale
Eye Opening: Spontaneous
Verbal Response: Oriented
Motor Response: Obeys Commands
GCS Total Score: 15
Skin Exam
Skin Exam: normal color and warm/dry
Psychiatric Exam
Psychiatric Exam: normal mood/affect
Course
Orders/Labs/Results
Orders:
Orders
07/26/24 09:45
CT Abd/pel W Iv And Oral Contr Urgent
Comment:
Reason For Exam: LLQ pain
Iohexol [Omnipaque] See Protocol PO NOW STA
07/26/24 11:36
Complete Blood Count/With Diff Urgent
Comprehensive Metabolic Panel Urgent
Lactate Level [Lactic Acid] Urgent
Lipase Urgent
07/26/24 15:05
Amoxicillin 875 mg/Clav 125 mg [Augmentin 875 mg/125 mg] 1 tablet PO NOW STA
Abnormal Lab Results
07/26/24
11:36
MCH 31.1 H pg
(27.0-31.0)
Absolute Neuts (auto) 7.0 H 10^3/uL
(1.4-6.5)
Absolute Lymphs (auto) 1.1 L 10^3/uL
(1.2-3.4)
Absolute Monos (auto) 0.7 H 10^3/uL
(0.1-0.6)
Neutrophils % 78.8 H %
(42.2-75.2)
Lymphocytes % 12.5 L %
(20.5-51.1)
Creatinine 0.4 L mg/dL
(0.6-1.0)
Glucose 100 H mg/dl
(70-99)
07/26/24 11:36
07/26/24 11:36
Vital Signs
Initial and Last Documented VS:
Initial Vital Signs
Temp Pulse Resp BP Pulse Ox
98.4 F 117 18 148/81 99
07/26/24 09:18 07/26/24 09:18 07/26/24 09:18 07/26/24 09:18 07/26/24 09:18
Last Documented Vital Signs
Temp Pulse Resp BP Pulse Ox
98.5 F 96 18 144/65 96
07/26/24 15:09 07/26/24 15:09 07/26/24 15:09 07/26/24 15:09 07/26/24 15:09
MDM/Problems Addressed
Differential Diagnosis Includes:
68yoF here with LLQ pain x several days. Currently mild. Recently admitted for colitis thought to be 2/2 low flow state/ischemia. No f/c. HR 117. Remainder of vitals are stable. She is well appearing in no distress. No signs of peritonitis on
abdominal exam. Differential diagnosis includes but is not limited to: diverticulitis, colitis, kidney stone, appendicitis, nonspecific abdominal pain
Initial ED plan: Check abdominal labs, lactate, and CT abdomen with IV/PO contrast.
*Critical Care Note
Total Time (30-74mins, 75-104mins- exclusive of procedures): Not Applicable
Update Note
Update Note:
Labs overall unremarkable including normal white count and lactate. CT shows extensive stranding and wall thickening along the sigmoid colon consistent with acute diverticulitis. No evidence of perforation or abscess. Pain is mild on reassessment
and vitals remain normal. No indication for hospitalization at this time. She was started on a course of Augmentin. Advised clear liquid diet until pain improves. She was advised to follow-up with PCP and GI. Strict ED return precautions
discussed. She expressed understanding and is agreement with plan. She was discharged in stable condition.
ED Attending Note
-
Portions of this chart may have been created with voice recognition software.� Occasional wrong word or��sound alike� substitutions may have occurred due to the inherent limitations of voice recognition software.
Discharge Plan
Departure
Patient Disposition: Home (Routine Discharge)
Date of Disposition: 07/26/24
Time of Disposition: 15:07
Patient with high blood pressure during this ER visit?: Yes
Discharge Problem:
Acute diverticulitis
Instructions: Diverticulitis (DC), Clear Liquid Diet
Prescriptions:
New
amoxicillin-pot clavulanate 875-125 mg tablet
1 tab PO BID Qty: 19 0RF
No Action
calcium carbonate 500 mg calcium (1,250 mg) Tablet
500 mg PO DAILY
lisinopril 10 MG tablet
20 mg PO QPM
cholecalciferol (vitamin D3) [Vitamin D3] 1,000 UNIT capsule
1 cap PO DAILY
acetaminophen [Tylenol] 325 mg Tablet
650 mg PO Q4HPRN PRN (Reason: mild pain)
Referrals:
Lindsey Rowley MD [Family Provider] -
Activity Restrictions/Additional Instructions:
Take antibiotics as prescribed. Eat a clear liquid diet until pain improves.
Please follow-up with your family doctor and gastroenterology. Return to the ER with any worsening symptoms, fevers, severe pain, or if you do not improve in 4 days.
Interventions
Interventions:
*Risk Screen - Suicide Last Done: 07/26/24 09:18
*General Assessment Last Done: 07/26/24 09:18
*Neglect/Abuse Screening Last Done: 07/26/24 09:18
Discharge Date and Time
Print Language: LITHUANIAN
[2024-07-26] MEDS: OMNIPAQUE 50 ML PO (11:26)
[2024-07-26 11:49] LABS: % Basophils 0.2 % (0-2); % Eosinophils 0.1 % (0-6); % Immature Granulocytes 0.2 % (0-0.5); % Lymphocytes 12.5 % (20.5-51.1); % Monocytes 8.2 % (1.7-9.3); % Neutrophils 78.8 % (42.2-75.2); Absolute Lymphocytes 1.1 10^3/uL (1.2-3.4); Absolute Monocytes 0.7 10^3/uL (0.1-0.6); Hematocrit 39.1 % (37.0-47.0); Hemoglobin 13.1 g/dL (12.0-16.0); Mean Corp Hgb Conc. 33.5 g/dL (33.0-37.0); Mean Corpuscular Hgb 31.1 pg (27.0-31.0); Mean Corpuscular Volume 92.9 fL (81.0-99.0); Mean Platelet Volume 9.1 fL (7.4-10.4); Nucleated Red Blood Cells % 0 %; Platelet Count 221 10^3/uL (130-400); Red Blood Cell Count 4.21 10^6/uL (4.20-5.40); Red Cell Dist. Width 12.7 % (11.5-14.5); White Blood Cell Count 8.9 10^3/uL (4.8-10.8)
[2024-07-26 12:02] LABS: ALT (SGPT) 14 U/L (0-35); AST (SGOT) 20 U/L (14-36); Alkaline Phosphatase 108 U/L (38-126); Blood Urea Nitrogen 11 mg/dl (7-17); Calcium 8.6 mg/dl (8.4-10.2); Carbon Dioxide 29 mmol/L (22-30); Chloride 103 mmol/L (98-107); Glucose 100 mg/dl (70-99); Lipase 33 U/L (23-300); Potassium 4.1 mmol/L (3.5-5.1); Sodium 140 mmol/L (135-145); Total Bilirubin 0.6 mg/dl (0.2-1.3); Total Protein 6.6 g/dl (6.3-8.2); eGFR > 60.00
[2024-07-26 12:07] LABS: Lactic Acid 0.7 mmol/L (0.7-2.0)
[2024-07-26 15:09] VITALS: BP 144/65
[2024-07-26] MEDS: AUGMENTIN 875 MG/125 MG 1 TABLET PO (15:29)
== END 2024-07-26 15:30 | disposition home or self-care (01) ==
LOC: EMR 09:15
PROVIDERS: Physician Assistant; EMERGENCY PHYSICIAN Emergency Medicine; FAMILY PHYSICIAN Family Medicine
DX: K57.32 Diverticulitis of large intestine without perforation or abscess without bleeding (principal); I10 Essential (primary) hypertension; Z85.3 Personal history of malignant neoplasm of breast; Z90.710 Acquired absence of both cervix and uterus
CPT/HCPCS: 99284; 74177; 80053; 83605; 83690; 85025; Q9967

== ENCOUNTER 2024-09-25 06:16 | Day surgery (SDC) | payer MEDICARE, OTHER, SELFPAY | END 2024-09-25 12:43 | disposition home or self-care (01) | LOC: GI 06:16 | PROVIDERS: ATTENDING PHYSICIAN Internal Medicine Gastroenterology; FAMILY PHYSICIAN Family Medicine | DX: R93.3 Abnormal findings on diagnostic imaging of other parts of digestive tract (principal); K64.8 Other hemorrhoids; K57.30 Diverticulosis of large intestine without perforation or abscess without bleeding; K56.699 Other intestinal obstruction unspecified as to partial versus complete obstruction | CPT/HCPCS: 45380; 88305 ==

== ENCOUNTER → 2024-10-05 09:13 | Outpatient (REF) | payer MEDICARE, OTHER, SELFPAY | LOC: HWRAD 09:13 | PROVIDERS: ATTENDING PHYSICIAN Internal Medicine Gastroenterology; FAMILY PHYSICIAN Family Medicine | DX: Q43.8 Other specified congenital malformations of intestine (principal) | CPT/HCPCS: 74261 ==

== ENCOUNTER → 2025-01-07 09:36 | Outpatient (REF) | payer MEDICARE, OTHER, SELFPAY | LOC: WDC 09:36 | PROVIDERS: ATTENDING PHYSICIAN Surgery; FAMILY PHYSICIAN Family Medicine | DX: N64.4 Mastodynia (principal) | CPT/HCPCS: 76642; 77062; 77066 ==

== ENCOUNTER → 2025-01-12 08:06 | Outpatient (REF) | payer MEDICARE, OTHER, SELFPAY ==
[2025-01-12 09:00] LABS: % Basophils 0.7 % (0-2); % Eosinophils 1.4 % (0-6); % Immature Granulocytes 0.2 % (0-0.5); % Lymphocytes 32.4 % (20.5-51.1); % Monocytes 7.5 % (1.7-9.3); % Neutrophils 57.8 % (42.2-75.2); Absolute Eosinophils 0.1 10^3/uL (0-0.7); Absolute Lymphocytes 1.4 10^3/uL (1.2-3.4); Absolute Monocytes 0.3 10^3/uL (0.1-0.6); Absolute Neutrophils 2.5 10^3/uL (1.4-6.5); Hematocrit 38.2 % (37.0-47.0); Hemoglobin 12.8 g/dL (12.0-16.0); Mean Corp Hgb Conc. 33.5 g/dL (33.0-37.0); Mean Corpuscular Hgb 31.1 pg (27.0-31.0); Mean Corpuscular Volume 92.9 fL (81.0-99.0); Mean Platelet Volume 9.4 fL (7.4-10.4); Nucleated Red Blood Cells % 0 %; Platelet Count 249 10^3/uL (130-400); Red Blood Cell Count 4.11 10^6/uL (4.20-5.40); White Blood Cell Count 4.3 10^3/uL (4.8-10.8)
[2025-01-12 09:56] LABS: ALT (SGPT) 14 U/L (0-35); AST (SGOT) 22 U/L (14-36); Albumin 3.9 g/dl (3.5-5.0); Alkaline Phosphatase 49 U/L (38-126); Blood Urea Nitrogen 13 mg/dl (7-17); Calcium 9.5 mg/dl (8.4-10.2); Carbon Dioxide 27 mmol/L (22-30); Chloride 110 mmol/L (98-107); Glucose 91 mg/dl (70-99); Potassium 4.5 mmol/L (3.5-5.1); Sodium 142 mmol/L (135-145); Total Bilirubin 0.5 mg/dl (0.2-1.3); Total Protein 6.6 g/dl (6.3-8.2); eGFR > 60.00
== END ==
LOC: REG 08:06
PROVIDERS: ATTENDING PHYSICIAN Internal Medicine Hematology & Oncology; FAMILY PHYSICIAN Family Medicine
DX: C50.312 Malignant neoplasm of lower-inner quadrant of left female breast (principal); M81.0 Age-related osteoporosis without current pathological fracture; Z79.811 Long term (current) use of aromatase inhibitors; R92.2 Inconclusive mammogram; Z12.31 Encounter for screening mammogram for malignant neoplasm of breast
CPT/HCPCS: 36415; 80053; 85025

== ENCOUNTER 2025-03-02 07:37 | Emergency (ER) | payer MEDICARE, OTHER, SELFPAY ==
[2025-03-02 07:54] VITALS: BMI 24.6
[2025-03-02 08:00] VITALS: BP 137/73
[2025-03-02 08:22] LABS: Urine Character Clear (Clear)
[2025-03-02] MEDS: OMNIPAQUE 50 ML PO (08:30)
[2025-03-02 08:35] VITALS: BP 137/73
[2025-03-02 08:38] LABS: Hematocrit 38.5 % (37.0-47.0); Hemoglobin 12.9 g/dL (12.0-16.0); Mean Corp Hgb Conc. 33.5 g/dL (33.0-37.0); Mean Corpuscular Volume 91.9 fL (81.0-99.0); Nucleated Red Blood Cells % 0 %; Platelet Count 216 10^3/uL (130-400); Red Cell Dist. Width 12.6 % (11.5-14.5)
[2025-03-02 09:00] VITALS: BP 141/68
[2025-03-02 09:05] LABS: Urine White Cell 0-2 /HPF (0-5)
[2025-03-02 09:07] LABS: ALT (SGPT) 14 U/L (0-35); AST (SGOT) 24 U/L (14-36); Albumin 4.2 g/dl (3.5-5.0); Alkaline Phosphatase 48 U/L (38-126); Blood Urea Nitrogen 13 mg/dl (7-17); Calcium 8.6 mg/dl (8.4-10.2); Carbon Dioxide 24 mmol/L (22-30); Chloride 110 mmol/L (98-107); Estimated Creatinine Clearance 73 ml/min; Glucose 105 mg/dl (70-99); Potassium 4.3 mmol/L (3.5-5.1); Sodium 139 mmol/L (135-145); Total Protein 6.9 g/dl (6.3-8.2); eGFR > 60.00
--- NOTE | 2025-03-02 09:30 | ED.GENMED ---
History of Present Illness
General
Chief Complaint: Back Pain
Source: patient
Exam Limitations: none
Time Seen by Provider: 03/02/25 08:06
Nursing documentation reviewed up to this point in time: agreed with
History of Present Illness
History of Present Illness:
The patient is a 69-year-old female w h/o breast CA w lumpectomy 2018, Colitis, diverticulitis, hiatal hernia who presents with L flank pain that began 2 days ago. The pain is worsening over time. She reports mild nausea but denies any fever,
chills, vomiting, diarrhea, or urinary symptoms. The pain is localized to the left flank and slightly into the right flank. The patient denies any chest pain or shortness of breath.
Additionally, the patient reports doing yard work, which involves bending at the waist due to pre-existing knee conditions. No recent injury or overuse was noted beyond the regular yard work activities.
Afebrile, NAD
Meds: Lisinopril.
- Prolia injection every six months.
- Calcium and vitamin D3 supplements.
Past History
Past History
ED Past Medical History: HTN and Other (Colitis, diverticulitis)
ED Past Surgical History: Gynecological and Orthopedic
Social History
Tobacco: Non-smoker
Alcohol: None
Personal:
Living: with family
Employment: Employed
Review of Systems
Review of Systems
Allergies reviewed?: Yes
All Other Systems: ROS reviewed and negative except as documented in HPI and ROS
Constitutional: Denies fever
ABD/GI: Reports abdominal pain (left); Denies nausea, vomiting, diarrhea, bloody stools or black stools
: Reports flank pain (left); Denies dysuria, frequency or difficulty voiding
Musculoskeletal: Denies edema
Skin: Reports no symptoms
Neurological: Denies headache
Phy Exam
Physical Exam
Physical Exam:
GENERAL: No acute distress. A&Ox3.
CONSTITUTIONAL: Afebrile.
EYES: clear, conjunctivae normal
ENMT: moist mucus membranes, Pharynx nl
RESPIRATORY: Regular respirations, nonlabored, lungs clear.
CARDIOVASCULAR: Regular rate and rhythm, no murmurs, no rubs.
GI: Soft, nontender, normal BS
MUSCULOSKELETAL: Moves with ease. Well perfused. No increase in pain with twisting [id number], sit to stand and vice versa. No pain with palpation.
SKIN: Warm, dry, pink
PSYCH: Normal mood and affect. Well kept, interactive and appropriate
NEUROLOGIC: Awake, alert and oriented. No focal neurological deficits
Course
Orders/Labs/Results
Orders:
Orders
03/02/25 07:58
Urinalysis Reflex To Culture Urgent
Date Specimen was Collected: 03/02/25
Time Specimen was Collected: 07:57
Urine Microscopic Reflex Cult Urgent
03/02/25 08:17
Iohexol [Omnipaque] See Protocol PO NOW STA
03/02/25 08:25
Complete Blood Count/With Diff Urgent
Comprehensive Metabolic Panel Urgent
03/02/25 09:48
CT Abd/pel W Iv And Oral Contr Urgent
Comment:
Reason For Exam: L lower back pain
Iohexol [Omnipaque] See Protocol PO NOW STA
03/02/25 09:54
Ketorolac [Toradol] 15 mg IV NOW STA
03/02/25 11:55
Dexamethasone Sod Phosphate [Decadron] 10 mg IV NOW STA
03/02/25 11:56
Dexamethasone Sod Phosphate [Decadron] 20 mg .ROUTE .STK-MED ONE
Abnormal Lab Results
03/02/25 03/02/25
07:58 08:25
WBC 4.7 L 10^3/uL
(4.8-10.8)
RBC 4.19 L 10^6/uL
(4.20-5.40)
Chloride 110 H mmol/L
(98-107)
Creatinine 0.4 L mg/dL
(0.6-1.0)
Glucose 105 H mg/dl
(70-99)
Ur Occult Blood Reflex 1+ A
(Negative)
Urine RBC 3-6 A /HPF
(0-2)
03/02/25 08:25
03/02/25 08:25
Vital Signs
Initial and Last Documented VS:
Initial Vital Signs
Temp Pulse Resp Pulse Ox
97.9 F 81 18 98
03/02/25 07:38 03/02/25 07:38 03/02/25 07:38 03/02/25 07:38
Last Documented Vital Signs
Temp Pulse Resp BP Pulse Ox
97.9 F 78 16 138/72 99
03/02/25 07:38 03/02/25 11:33 03/02/25 11:33 03/02/25 11:33 03/02/25 09:39
MDM/Problems Addressed
Differential Diagnosis Includes:
kidney stone, UTI, hiatal hernia, musculoskeletal pain,
MDM/Problems Addressed:
The patient is a 69-year-old female w h/o breast CA w lumpectomy 2018, Colitis, diverticulitis, hiatal hernia who presents with L flank pain that began 2 days ago. The pain is worsening over time. She reports mild nausea but denies any fever,
chills, vomiting, diarrhea, or urinary symptoms. The pain is localized to the left flank and slightly into the right flank. The patient denies any chest pain or shortness of breath.
Additionally, the patient reports doing yard work, which involves bending at the waist due to pre-existing knee conditions. No recent injury or overuse was noted beyond the regular yard work activities.
Pt had upper endoscopy by Dr. Morris, found hiatal hernia, pt concerned for GERD
Afebrile, NAD
Plan:
- Order basic blood work to evaluate for underlying pathology.
- Check the urine sample for signs of infection or blood, indicating renal issues such as kidney stones.
- Begin the patient on an oral contrast prep in anticipation of a CT scan if needed, focusing on diverticulitis/colitis versus kidney stones.
- If needed, write a prescription for a muscle relaxant to assist with pain management.
- Consider follow-up based on test results to assess for any gastrointestinal issues.
9:30 a.m.
CBC: Normal
CMP: normal
U/A neg
In to re evaluate pt: Pain now centered mid left buttock, consider sciatica
11:45 AM
Radiologist texted me saying patient has very mild rectosigmoid diverticulitis no abscess.
Patient has been having mild intermittent left sided abdominal pain over the past month or so and recently the left buttock pain which is reproducible with palpation and she has been working in her garden and started a recumbent bicycle exercise
about a month ago.
I will treat her for both diverticulitis and sciatica.
Augmentin rx sent to her pharmacy and
Prednisone 40 mg daily x 3 days
*Pulse Oximetry
SaO2: 99
Oxygen Mode of Delivery: Room air
Patient hypoxic: not evaluated
*Critical Care Note
Total Time (30-74mins, 75-104mins- exclusive of procedures): Not Applicable
ED Attending Note
-
Portions of this chart may have been created with voice recognition software.� Occasional wrong word or��sound alike� substitutions may have occurred due to the inherent limitations of voice recognition software.
Discharge Plan
Departure
Patient Disposition: Home (Routine Discharge)
Date of Disposition: 03/02/25
Time of Disposition: 11:57
Patient with high blood pressure during this ER visit?: No
Condition: Good
Discharge Problem:
Diverticulitis of sigmoid colon, Left sided sciatica
Instructions: Sciatica (DC), Diverticulitis - Discharge instructions
Prescriptions:
New
amoxicillin-pot clavulanate 875-125 mg tablet
1 tab PO BID Qty: 14 0RF
prednisone 20 mg tablet
40 mg PO DAILY Qty: 6 0RF
No Action
calcium carbonate 500 mg calcium (1,250 mg) Tablet
500 mg PO DAILY
lisinopril 10 MG tablet
20 mg PO QPM
cholecalciferol (vitamin D3) [Vitamin D3] 1,000 UNIT capsule
1 cap PO DAILY
acetaminophen [Tylenol] 325 mg Tablet
650 mg PO Q4HPRN PRN (Reason: mild pain)
amoxicillin-pot clavulanate 875-125 mg tablet
1 tab PO BID Qty: 19 0RF
Referrals:
Lindsey Rowley MD [Family Provider, Family Practice]
Vida Avila MD [Active, Gastroenterology] - Next open appointment
Activity Restrictions/Additional Instructions:
As we discussed, call Dr. Avila's office and ask when they want to see you for follow-up.
I sent a prescription to your pharmacy for prednisone as an anti-inflammatory for your sciatica, started tomorrow because you were given a dose of steroid here today.
I sent a prescription to your pharmacy for Augmentin antibiotic to take twice a day for 7 days for the diverticulitis.
Avoid riding the bike and doing the gardening or anything that aggravates your low back/buttock pain until it is completely resolved.
Interventions
Interventions:
*Risk Screen - Suicide Last Done: 03/02/25 07:38
*General Assessment Last Done: 03/02/25 07:38
*Neglect/Abuse Screening Last Done: 03/02/25 07:38
*ED- Fall Risk Assessment Last Done: 03/02/25 07:53
*ED COVID-19 Vaccine History Last Done: 03/02/25 07:53
*Nursing Disposition Last Done: 03/02/25 12:15
ED-Musculoskeletal Assessment Last Done: 03/02/25 07:55
Discharge Date and Time
Discharge Date/Time: 03/02/25 12:16
Print Language: CROATIAN
[2025-03-02] MEDS: TORADOL 15 MG IV (10:10)
[2025-03-02 11:33] VITALS: BP 138/72
[2025-03-02] MEDS: DECADRON 10 MG IV (11:58)
== END 2025-03-02 12:16 | disposition home or self-care (01) ==
LOC: EMR 07:37
PROVIDERS: Emergency Medicine; Registered Nurse; EMERGENCY PHYSICIAN Emergency Medicine; FAMILY PHYSICIAN Family Medicine
DX: K57.32 Diverticulitis of large intestine without perforation or abscess without bleeding (principal); M54.42 Lumbago with sciatica, left side; R11.0 Nausea; K52.9 Noninfective gastroenteritis and colitis, unspecified; K44.9 Diaphragmatic hernia without obstruction or gangrene; I10 Essential (primary) hypertension; M19.90 Unspecified osteoarthritis, unspecified site; Z85.3 Personal history of malignant neoplasm of breast
CPT/HCPCS: 99284; 96375; 96374; 74177; 80053; 81003; 81015; 85025; Q9967

== ENCOUNTER 2025-05-28 11:01 | Outpatient (RCR) | payer MEDICARE, OTHER, SELFPAY | END 2025-05-28 23:59 | disposition home or self-care (01) | LOC: RPT 11:01 | PROVIDERS: ATTENDING PHYSICIAN Orthopaedic Surgery Adult Reconstructive Orthopaedic Surgery; FAMILY PHYSICIAN Family Medicine | DX: R26.2 Difficulty in walking, not elsewhere classified (principal); Z73.6 Limitation of activities due to disability; R26.89 Other abnormalities of gait and mobility; M25.662 Stiffness of left knee, not elsewhere classified; M62.81 Muscle weakness (generalized); Z96.652 Presence of left artificial knee joint | CPT/HCPCS: 97110; 97140; 97162 ==

== ENCOUNTER 2025-06-04 13:02 | Outpatient (RCR) | payer MEDICARE, OTHER, SELFPAY | END 2025-06-04 23:59 | disposition home or self-care (01) | LOC: RPT 13:02 | PROVIDERS: ATTENDING PHYSICIAN Orthopaedic Surgery Adult Reconstructive Orthopaedic Surgery; FAMILY PHYSICIAN Family Medicine | DX: R26.2 Difficulty in walking, not elsewhere classified (principal); Z73.6 Limitation of activities due to disability; R26.89 Other abnormalities of gait and mobility; M25.662 Stiffness of left knee, not elsewhere classified; M62.81 Muscle weakness (generalized); Z96.652 Presence of left artificial knee joint | CPT/HCPCS: 97110; 97112 ==

== ENCOUNTER → 2025-06-24 07:43 | Outpatient (REF) | payer MEDICARE, OTHER, SELFPAY ==
[2025-06-24 09:08] LABS: Hematocrit 40.2 % (37.0-47.0); Hemoglobin 13.0 g/dL (12.0-16.0); Mean Corp Hgb Conc. 32.3 g/dL (33.0-37.0); Mean Corpuscular Volume 95.9 fL (81.0-99.0); Nucleated Red Blood Cells % 0 %; Platelet Count 271 10^3/uL (130-400); Red Cell Dist. Width 12.5 % (11.5-14.5)
[2025-06-24 09:38] LABS: Vitamin D, 25-OH*** 29.1 ng/mL (30-80)
[2025-06-24 09:45] LABS: ALT (SGPT) 19 U/L (0-35); AST (SGOT) 26 U/L (14-36); Albumin 4.3 g/dl (3.5-5.0); Alkaline Phosphatase 56 U/L (38-126); Blood Urea Nitrogen 13 mg/dl (7-17); Calcium 9.4 mg/dl (8.4-10.2); Carbon Dioxide 27 mmol/L (22-30); Chloride 105 mmol/L (98-107); Glucose 96 mg/dl (70-99); HDL Cholesterol 69 mg/dl; LDL Cholesterol, Calculated 119 mg/dl; Potassium 4.3 mmol/L (3.5-5.1); Sodium 137 mmol/L (135-145); Total Protein 7.3 g/dl (6.3-8.2); Very Low Density Lipoprotein 11 mg/dl (0-30); eGFR > 60.00
[2025-06-24 09:51] LABS: TSH 1.11 uIU/ml (0.47-4.68)
[2025-06-24 10:20] LABS: Glycohemoglobin (HgbA1c) 5.4 % (4.0-5.9)
== END ==
LOC: REG 07:43
PROVIDERS: ATTENDING PHYSICIAN Family Medicine
DX: E78.2 Mixed hyperlipidemia (principal); I10 Essential (primary) hypertension; D64.9 Anemia, unspecified; R73.09 Other abnormal glucose; E55.9 Vitamin D deficiency, unspecified; Z00.00 Encounter for general adult medical examination without abnormal findings
CPT/HCPCS: 36415; 80053; 80061; 82306; 83036; 84443; 85025